=== PATIENT | male | born 1995 | race Caucasian/White ===

== ENCOUNTER 2017-06-01 15:15 | Emergency (ER) | payer BC ==
[2017-06-01 15:39] VITALS: BP 146/70
[2017-06-01] MEDS ORDERED: Ibuprofen TAB* 400 MG PO ONE (15:46)
--- NOTE | 2017-06-01 15:53 | ED ---
Lower Extremity - HPI Summary HPI Summary: 21 yr old male with the complaint of right anterior thigh pain. The patient states he was squating weights at the gym, and had about 300 pounds on his back. He went down to squat and felt a pop and tear in the upper right anterior thigh area. He states it hurts to try to extend the right lower leg due to pain in his upper right thigh. No swelling or bruising. Pain /10. - History of Current Complaint Chief Complaint: UCLowerExtremity Stated Complaint: RIGHT HIP/LEG INJURY Time Seen by Provider: 06/01/17 15:32 Pain Intensity: 7 - Allergies/Home Medications Allergies/Adverse Reactions: Allergies Allergy/AdvReac Type Severity Reaction Status Date / Time Penicillins Allergy "Slight Verified 06/01/17 15:39 Rash" Home Medications: Home Medications Ibuprofen TAB* [Advil TAB*] 400 - 600 mg PO Q6H PRN 06/01/17 [History Confirmed 06/01/17] PMH/Surg Hx/FS Hx/Imm Hx Previously Healthy: Yes - Surgical History Hx Anesthesia Reactions: No Infectious Disease History: No Infectious Disease History: Denies: Traveled Outside the [place] in Last 30 Days - Family History Known Family History: Positive: None - Social History Alcohol Use: Weekly Substance Use Type: Reports: Marijuana Substance Use Comment - Amount & Last Used: Weekly Smoking Status (MU): Current Some Day Smoker Review of Systems Positive: Other - thigh muscle pain All Other Systems Reviewed And Are Negative: Yes Physical Exam Triage Information Reviewed: Yes Vital Signs On Initial Exam: Initial Vitals Temp Pulse Resp BP Pulse Ox 98.9 F 88 16 146/70 100 06/01/17 15:31 06/01/17 15:31 06/01/17 15:31 06/01/17 15:31 06/01/17 15:31 Vital Signs Reviewed: Yes Appearance: Positive: Pain Distress Skin: Positive: Warm, Skin Color Reflects Adequate Perfusion Head/Face: Positive: Normal Head/Face Inspection ENT: Positive: Pharynx normal Respiratory/Lung Sounds: Positive: Clear to Auscultation, Breath Sounds Present Cardiovascular: Positive: RRR, Pulses are Symmetrical in both Upper and Lower Extremities - he has intact pulses in his right foot DP and PT. Abdomen Description: Positive: Nontender Musculoskeletal: Positive: Other - tenderness over the right upper anterior thigh. No gross deformity. No retraction of the leg muscle. Neurological: Positive: Sensory/Motor Intact, Alert, Oriented to Person Place, Time, CN Intact II-III Psychiatric: Positive: Normal - Padmini Coma Scale Best Eye Response: 4 - Spontaneous Best Motor Response: 6 - Obeys Commands Best Verbal Response: 5 - Oriented Coma Scale Total: 15 Diagnostics - Vital Signs Vital Signs Temp Pulse Resp BP Pulse Ox 06/01/17 15:31 98.9 F 88 16 146/70 100 - Laboratory Lab Statement: Any lab studies that have been ordered have been reviewed, and results considered in the medical decision making process. Lower Extremity Course/Dx - Course Course Of Treatment: 21 yr old with pain in right pelvis and right anterior thigh after weight lifting injury. I recommend transfer to the ER by ambulance as he cannot bear weight or use his right thigh due to pain. He refused xrays here as well. He refused ambulance transfer. He signed out AMA. - Diagnoses Provider Diagnoses: Right thigh pain Discharge - Discharge Plan Condition: Good Disposition: AGAINST MEDICAL ADVICE Referrals: No Primary Care Phys,NOPCP [Primary Care Provider] -
== END 2017-06-01 16:20 | disposition left against medical advice (07) ==
LOC: UCCORT 15:15
DX: M79.651 Pain in right thigh (principal); Z88.0 Allergy status to penicillin; F12.90 Cannabis use, unspecified, uncomplicated; Z72.0 Tobacco use
CPT/HCPCS: 99202; A9270-GY; G0463

== ENCOUNTER 2017-07-25 18:42 | Emergency (ER) | payer BC ==
[2017-07-25 19:36] VITALS: BP 122/61
[2017-07-25] MEDS ORDERED: Ibuprofen TAB* 600 MG PO ONE (20:30)
--- NOTE | 2017-07-25 21:12 | UC ---
Hand/Wrist HPI - HPI Summary HPI Summary: PLAYING BASKETBALL THIS AFTERNOON AROUND 3:30PM. HAD THE BALL IN BOTH HANDS AND WAS RAISING ARMS UP WHEN ANOTHER PLAYER CAME DOWN WITH HSI ELBOW DIRECTLY ON PT' S RIGHT HAND. HEARD A CRACK. HAS SWELLING, PAIN AND DECREASED ROM. - History Of Current Complaint Chief Complaint: UCUpperExtremity Stated Complaint: RIGHT HAND INJURY Time Seen by Provider: 07/25/17 20:47 Hx Obtained From: Patient Onset/Duration: Sudden Onset, Lasting Hours, Still Present Severity Initially: Moderate Severity Currently: Moderate Pain Intensity: 7 Pain Scale Used: 0-10 Numeric Character Of Pain: Sharp Aggravating Factor(s): Movement Alleviating Factor(s): Rest Associated Signs And Symptoms: Positive: Swelling. Negative: Numbness/Tingling Related History: Dominant Hand Right - Allergies/Home Medications Allergies/Adverse Reactions: Allergies Allergy/AdvReac Type Severity Reaction Status Date / Time MS Penicillins [Penicillins] Allergy "Slight Verified 07/25/17 19:36 Rash" PMH/Surg Hx/FS Hx/Imm Hx Previously Healthy: Yes - Surgical History Surgical History: None - Family History Known Family History: Positive: None Negative: Hypertension - Social History Alcohol Use: Weekly Substance Use Type: Marijuana Substance Use Comment - Amount & Last Used: Weekly Smoking Status (MU): Current Some Day Smoker Review of Systems Constitutional: Negative Skin: Negative Respiratory: Negative Cardiovascular: Negative Gastrointestinal: Negative Musculoskeletal: Arthralgia, Decreased ROM, Edema All Other Systems Reviewed And Are Negative: Yes Physical Exam Triage Information Reviewed: Yes Appearance: Well-Appearing, No Pain Distress, Well-Nourished Vital Signs: Initial Vital Signs Temp 98.0 F 07/25/17 19:30 Pulse 59 07/25/17 19:30 Resp 16 07/25/17 19:30 BP 122/61 07/25/17 19:30 Pulse Ox 100 07/25/17 19:30 Vital Signs Reviewed: Yes Eyes: Positive: Conjunctiva Clear ENT: Positive: Hearing grossly normal Neck: Positive: Supple Respiratory: Positive: No respiratory distress, No accessory muscle use Cardiovascular: Positive: Pulses Normal Abdomen Description: Positive: Soft Musculoskeletal: Positive: ROM Limited @ - RIGHT HAND/THUMB AND INDEX FINGER, Edema @ - RIGHT THENAR EMINENCE, Other: - TTP RIGHT 1ST AND 2ND METACARPALS, MCP JOINTS AND PROXIMAL PHALANGES. NO WRIST TENDERNESS. Neurological: Positive: Alert Psychological: Positive: Age Appropriate Behavior Skin: Negative: rashes Diagnostics - Radiology RIGHT HAND XRAY Xray Interpretation: No Acute Changes Radiology Interpretation Completed By: Radiologist Hand/Wrist Course/Dx - Differential Dx/Diagnosis Provider Diagnoses: RIGHT HAND CONTUSION Discharge - Sign-Out/Discharge Documenting (check all that apply): Discharge - Discharge Plan Condition: Stable Disposition: HOME Patient Education Materials: Contusion in Adults (ED) Forms: *School Release Referrals: Andrea Ortega MD [Medical Doctor] - If Needed Additional Instructions: XRAY TODAY UNREMARKABLE. THUMB SPICA FOR COMFORT. IBUPROFEN NEEDED. REST, ICE , ELEVATE. FOLLOW-UP WITH [facility]THO IF YOU ARE NOT IMPROVING EXPECTED OVER THE NEXT 1-2 WEEKS. - Billing Disposition and Condition Condition: STABLE Disposition: HOME
--- NOTE | 2017-07-25 21:19 | RAD ---
HISTORY: Trauma pain to right hand COMPARISONS: None VIEWS: 4, Frontal, lateral, and oblique views of the right hand FINDINGS: BONE DENSITY: Normal. BONES: There is no displaced fracture. JOINTS: There is no arthropathy. ALIGNMENT: There is no dislocation. SOFT TISSUES: Unremarkable. OTHER FINDINGS: None. IMPRESSION: NO ACUTE OSSEOUS INJURY. IF SYMPTOMS PERSIST, RECOMMEND REPEAT IMAGING.
== END 2017-07-25 22:06 | disposition home or self-care (01) ==
LOC: UCCORT 18:42
DX: S60.221A Contusion of right hand, initial encounter (principal); W50.0XXA Accidental hit or strike by another person, initial encounter; Y93.67 Activity, basketball; Y92.9 Unspecified place or not applicable; Z88.0 Allergy status to penicillin; F17.210 Nicotine dependence, cigarettes, uncomplicated
CPT/HCPCS: 99213; A9270-GY; G0463